=== PATIENT | female | born 1955 | race Caucasian/White ===

== ENCOUNTER 2017-08-04 21:13 | Emergency (ER) | payer OTHER ==
[2017-08-04] MEDS ORDERED: Sodium Chloride 0.9% 500 ML IV ONE (21:45)
[2017-08-04] MEDS ORDERED: Aluminum Hydroxide/Magnesium Hydroxide Susp (30 mL) PO STA (21:45)
--- NOTE | 2017-08-04 21:46 | C.PDOC ---
History Of Present Illness 61 year old female presents to the ED with daughter for evaluation of epigastric abdominal pain which has been intermittent for several days. Patient describes her symptoms as a cramping sensation and states she experienced similar episodes only 1-2 times prior to today. She denies any exacerbating or relieving factors and states the onset of her pain is unpredictable. Patient denies fever, chills, vomiting, diarrhea, constipation, dysuria, hematuria, urinary frequency. Patient also denies previous abdominal surgeries, gallstones , or liver problems. History obtained from daughter due to language barrier. Chief Complaint (Nursing): Abdominal Pain History Per: Patient, Family (daughter ) History/Exam Limitations: language barrier Onset/Duration Of Symptoms: Intermittent Episodes Current Symptoms Are (Timing): Still Present Location Of Pain/Discomfort: Epigastric Radiation Of Pain To:: None Quality Of Discomfort: Cramping, "Pain" Associated Symptoms: denies: Fever, Chills, Vomiting, Urinary Symptoms Last Bowel Movement: Today (few hours prior to arrival) Additional History Per: Patient, Family Abnormal Vaginal Bleeding: No Past Medical History Reviewed: Historical Data, Nursing Documentation, Vital Signs Vital Signs: Last Vital Signs Temp 97.1 F L 08/05/17 00:44 Pulse 88 08/05/17 00:44 Resp 20 08/05/17 00:44 BP 149/70 08/05/17 00:44 Pulse Ox 97 08/05/17 00:48 - Medical History PMH: Anemia, HTN, Hyperlipidemia Denies: Chronic Kidney Disease Surgical History: No Surg Hx - [facility] Procedures CLOSED ENDOSCOPIC BIOPSY OF LARGE INTESTINE (05/08/15) Family History: States: Unknown Family Hx - Social History Hx Alcohol Use: No Hx Substance Use: No - Immunization History Hx Tetanus Toxoid Vaccination: No Hx Influenza Vaccination: Yes Hx Pneumococcal Vaccination: No Review Of Systems Constitutional: Negative for: Fever, Chills Gastrointestinal: Positive for: Abdominal Pain (epigastric ). Negative for: Vomiting, Diarrhea, Constipation Genitourinary: Negative for: Dysuria, Frequency, Hematuria Physical Exam - Physical Exam Appears: Non-toxic, No Acute Distress Skin: Warm, Dry, Other (pink ) Head: Atraumatic, Normacephalic Eye(s): bilateral: Normal Inspection Oral Mucosa: Moist Neck: Supple Chest: Symmetrical, No Deformity, No Tenderness Cardiovascular: Rhythm Regular, No Murmur, Other (non-accelerated ) Respiratory: Normal Breath Sounds, No Rales, No Rhonchi, No Wheezing Gastrointestinal/Abdominal: Bowel Sounds (active), Soft, Tenderness (to epigastric and left upper quadrant regions on palpation ), No Guarding, No Rebound, Other (protuberant. negative Peguero's sign ) Extremity: Normal ROM, Capillary Refill (less than 2 seconds ) Neurological/Psych: Oriented x3, Normal Speech, Normal Cognition Gait: Steady ED Course And Treatment - Laboratory Results Result Diagrams: 08/04/17 22:07 08/04/17 22:07 O2 Sat by Pulse Oximetry: 97 (on RA) Pulse Ox Interpretation: Normal Medical Decision Making Medical Decision Making: Impression: 61 year old female with epigastric and left upper quadrant abdominal pain Differential Diagnoses include but are not limited to: Gastritis vs Peptic Ulcer Disease vs Gallbladder Disease Progress: Bloodwork ordered and reviewed. Maalox PO, Pepcid IVP, Zofran IVP, Lidocaine PO , and IV Fluids administered. Disposition - Disposition Referrals: at [facility] [Outside] Disposition: HOME/ ROUTINE Disposition Time: 00:35 Condition: GOOD Prescriptions: Pantoprazole Sodium [Protonix] 40 mg PO DAILY #14 ect Instructions: Gastritis (ED) Forms: [email or web address] (Urdu) - Clinical Impression Clinical Impression: Gastritis, Gastroesophageal reflux disease - Scribe Statement The provider has reviewed the documentation as recorded by the Scribe (Tiffanie Cancino) Provider Attestation: All medical record entries made by the Scribe were at my direction and personally dictated by me. I have reviewed the chart and agree that the record accurately reflects my personal performance of the history, physical exam, medical decision making, and the department course for this patient. I have also personally directed, reviewed, and agree with the discharge instructions and disposition.
--- NOTE | 2017-08-04 21:47 | C.PDOC ---
Chief Complaint (Nursing): Abdominal Pain Past Medical History Vital Signs: Last Vital Signs Temp 97.5 F L 08/04/17 21:24 Pulse 86 08/04/17 21:24 Resp 18 08/04/17 21:24 BP 150/73 08/04/17 21:24 Pulse Ox 97 08/04/17 21:24 - Medical History PMH: Anemia, HTN, Hyperlipidemia Denies: Chronic Kidney Disease - [facility] Procedures CLOSED ENDOSCOPIC BIOPSY OF LARGE INTESTINE (05/08/15) - Social History Hx Alcohol Use: No Hx Substance Use: No - Immunization History Hx Tetanus Toxoid Vaccination: No Hx Influenza Vaccination: Yes Hx Pneumococcal Vaccination: No ED Course And Treatment O2 Sat by Pulse Oximetry: 97 Disposition - Disposition
[2017-08-04] MEDS ORDERED: Aluminum Hydroxide/Magnesium Hydroxide Susp (30 mL) ONE (22:08)
[2017-08-04 22:11] LABS: BASO # 0.1 K/uL (0.0-0.2); BASO % 1.2 % (0.0-2.0); EOS # 0.3 K/uL (0.0-0.7); EOS % 4.2 % (0.0-4.0); HEMATOCRIT 34.3 % (34.0-47.0); LYMPH # 4.5 K/uL (1.0-4.3); LYMPH % 56.7 % (20.0-40.0); MEAN CELL VOLUME 61.7 fL (81.0-99.0); MEAN CORPUSCULAR HEMOGLOBIN 19.6 pg (27.0-31.0); MEAN CORPUSCULAR HGB CONC 31.8 g/dL (33.0-37.0); MEAN PLATELET VOLUME 8.8 fL (7.2-11.7); MONO # 0.5 K/uL (0.0-0.8); MONO % 6.4 % (0.0-10.0); NRBC % 0.1 % (0.0-2.0); RED CELL DISTRIBUTION WIDTH 17.4 % (11.5-14.5)
[2017-08-04 22:26] LABS: ALB/GLOB RATIO 1.5 (1.0-2.1); ALKALINE PHOSPHATASE 54 U/L (38-126); ALT/SGPT 26 U/L (9-52); AST/SGOT 19 U/L (14-36); BILIRUBIN,TOTAL 0.6 mg/dL (0.2-1.3); BLOOD UREA NITROGEN 26 mg/dL (7-17); CALCIUM 8.8 mg/dl (8.6-10.4); CARBON DIOXIDE 21 mmol/L (22-30); CHLORIDE 101 mmol/L (98-107); GFR AFRICAN-AMERICAN > 60; GLUCOSE,RANDOM 134 mg/dL (65-105); POTASSIUM 4.2 mmol/L (3.6-5.2); SODIUM 134 mmol/L (132-148)
[2017-08-05 00:46] VITALS: BP 149/70; PULSE 88; RESP 20; TEMP 97.1
[2017-08-05 00:48] VITALS: O2SAT 97
== END 2017-08-05 00:46 | disposition home or self-care (01) ==
LOC: C.ER 21:13
DX: K29.70 Gastritis, unspecified, without bleeding (principal); K21.9 Gastro-esophageal reflux disease without esophagitis
CPT/HCPCS: 80053; 83690; 84484; 85025; 96361; 96374; 96375; 99284; J2405; J7040

== ENCOUNTER 2018-01-19 14:55 | Emergency (ER) | payer OTHER ==
[2018-01-19 15:08] VITALS: BMI 35.3
[2018-01-19] MEDS ORDERED: Sodium Chloride 0.9% 1,000 ML IV ONE (16:05)
[2018-01-19] MEDS ORDERED: Iohexol 240 (50 ml) PO STA (16:05)
--- NOTE | 2018-01-19 16:05 | C.PDOC ---
History Of Present Illness 62 Y/O FEMALE PRESENTS TO ED WITH C/O RECUR EPIG/RUQ PAIN SINCE 299. PATIENT HAD SIM TO PRIOR SX EVALUATED ON 07/2017 BUT NO PRIOR IMAGING. PATIENT REPORTS CURRENT PAIN MORE INTENSE THAN LAST EPISODE. NO FEVER. +NAUSEA AND DIARRHEA LAST BM TODAY. PSH NEG. REFERRED BY PMD FOR EVAL EXAM MILD DIST NONTOXIC ABD +RUQ/EPIG TEND MOD SOFT NO R/G REMAINDER NEG MDM NPO SINCE 24 HRS Time Seen by Provider: 01/19/18 15:54 Chief Complaint (Nursing): Abdominal Pain History Per: Patient History/Exam Limitations: no limitations Onset/Duration Of Symptoms: Days Current Symptoms Are (Timing): Still Present Location Of Pain/Discomfort: RUQ, Epigastric Past Medical History Reviewed: Historical Data, Nursing Documentation, Vital Signs Vital Signs: Last Vital Signs Temp 98.6 F 01/19/18 18:06 Pulse 96 H 01/19/18 18:06 Resp 18 01/19/18 18:06 BP 100/59 L 01/19/18 18:06 Pulse Ox 99 01/19/18 18:06 - Medical History PMH: Anemia, HTN, Hyperlipidemia Surgical History: No Surg Hx - [facility] Procedures CLOSED ENDOSCOPIC BIOPSY OF LARGE INTESTINE (05/08/15) Family History: States: No Known Family Hx - Social History Hx Alcohol Use: No Hx Substance Use: No - Immunization History Hx Tetanus Toxoid Vaccination: No Hx Influenza Vaccination: Yes (2017) Hx Pneumococcal Vaccination: No Review Of Systems Constitutional: Negative for: Fever, Chills Gastrointestinal: Positive for: Abdominal Pain. Negative for: Nausea, Vomiting , Diarrhea Musculoskeletal: Negative for: Back Pain Skin: Negative for: Rash Physical Exam - Physical Exam Appears: Non-toxic, Other (In mild distress) Skin: Normal Color, Warm, Dry, No Rash Head: Atraumatic, Normacephalic Oral Mucosa: Moist Neck: Normal ROM, Supple Cardiovascular: Rhythm Regular Respiratory: Normal Breath Sounds, No Rales, No Rhonchi, No Wheezing Gastrointestinal/Abdominal: Soft, Tenderness (RUQ and Epigastric), No Guarding, No Rebound Back: No CVA Tenderness Extremity: Normal ROM, Capillary Refill (<2 seconds) Neurological/Psych: Oriented x3, Normal Speech, Normal Cognition ED Course And Treatment - Laboratory Results Result Diagrams: 01/19/18 16:23 01/19/18 16:23 ECG: Interpreted By Me, Viewed By Me ECG Rhythm: Sinus Tachycardia Rate From EC (BPM) O2 Sat by Pulse Oximetry: 97 (RA) Pulse Ox Interpretation: Normal Progress - Re-Evaluation Re-evaluation Note: 01/19/18 18:[address], US REPORT REVIEWED. 01/19/18 18:[address] JOSUE 01/19/18 18:08 D/W DR JOSUE AWARE OF ER FINDINGS - Data Reviewed Data Reviewed: Lab, Diagnostic imaging, EKG, Old records Medical Decision Making Medical Decision Making: PATIENT NPO SINCE 24 HOURS Disposition Counseled Patient/Family Regarding: Studies Performed, Diagnosis, Need For Followup, Rx Given - Disposition Referrals: Ellen Josue MD [Staff Provider] - Disposition: HOME/ ROUTINE Disposition Time: 18:01 Condition: IMPROVED Prescriptions: Dicyclomine [Bentyl] 20 mg PO TID PRN #12 tab PRN Reason: Pain Ondansetron [Zofran Odt] 4 mg PO TID PRN #9 odt PRN Reason: Nausea/Vomiting Instructions: Acute Abdomen (Belly Pain), Adult (DC), Viral Gastroenteritis, Adult (DC) Forms: Accompanied To ED By:, Silver [employer] (Danish) - Clinical Impression Clinical Impression: Abdominal pain, Nausea, Diarrhea - Scribe Statement The provider has reviewed the documentation as recorded by the Scribmellissa Yu All medical record entries made by the Scribe were at my direction and personally dictated by me. I have reviewed the chart and agree that the record accurately reflects my personal performance of the history, physical exam, medical decision making, and the department course for this patient. I have also personally directed, reviewed, and agree with the discharge instructions and disposition.
[2018-01-19 16:26] LABS: BASO % 0.2 % (0.0-2.0); EOS % 0.2 % (0.0-4.0); HEMOGLOBIN 12.9 g/dL (11.0-16.0); LYMPH # 0.9 K/uL (1.0-4.3); LYMPH % 10.8 % (20.0-40.0); MEAN CELL VOLUME 60.4 fL (81.0-99.0); MEAN CORPUSCULAR HEMOGLOBIN 19.7 pg (27.0-31.0); MEAN CORPUSCULAR HGB CONC 32.6 g/dL (33.0-37.0); MEAN PLATELET VOLUME 9.1 fL (7.2-11.7); MONO # 0.3 K/uL (0.0-0.8); MONO % 3.9 % (0.0-10.0); NEUT # 7.1 K/uL (1.8-7.0); NEUT % 84.9 % (50.0-75.0); NRBC % 0.1 % (0.0-2.0); RBC 6.54 Mil/uL (3.80-5.20); RED CELL DISTRIBUTION WIDTH 17.5 % (11.5-14.5); WHITE BLOOD COUNT 8.4 K/uL (4.8-10.8)
[2018-01-19] MEDS ORDERED: Morphine 4 MG/ML VIAL ONE (16:26)
[2018-01-19] MEDS ORDERED: Iohexol 240 (50 ml) ONE (16:26)
[2018-01-19] MEDS ORDERED: Sodium Chloride 0.9% 1,000 ML ONE (16:27)
[2018-01-19 16:32] LABS: SQUAMOUS EPITHIAL 3 /hpf (0-5); URINE BILIRUBIN NEGATIVE (NEGATIVE); URINE BLOOD NEGATIVE (NEGATIVE); URINE CLARITY Hazy (Clear); URINE COLOR Yellow (YELLOW); URINE GLUCOSE (UA) NORMAL (Normal); URINE LEUKOCYTE ESTERASE 1+ Leu/uL (Negative); URINE PROTEIN NEGATIVE (NEGATIVE); URINE UROBILINOGEN NORMAL mg/dL (0.2-1.0)
[2018-01-19 16:40] LABS: ALB/GLOB RATIO 1.2 (1.0-2.1); ALBUMIN 4.6 g/dL (3.5-5.0); ALT/SGPT 20 U/L (9-52); AST/SGOT 20 U/L (14-36); BLOOD UREA NITROGEN 26 mg/dL (7-17); CALCIUM 9.3 mg/dl (8.6-10.4); GFR AFRICAN-AMERICAN > 60; GFR NON-AFRICAN AMERICAN > 60; LIPASE 91 U/L (23-300)
[2018-01-19] MEDS ORDERED: Iohexol 300 100 ML IJ ONE (16:53)
--- NOTE | 2018-01-19 17:30 | US ---
HISTORY: Abdominal pain COMPARISON: None. TECHNIQUE: Sonographic evaluation of the right upper quadrant of the abdomen. FINDINGS: LIVER: Measures 16.3 cm in length. Hepatopedal blood flow. Fatty infiltration manifest ultrasonographically as increased echogenicity of the liver parenchyma. No mass. No intrahepatic bile duct dilatation. GALLBLADDER: Unremarkable. No gallstones. COMMON BILE DUCT: Measures 3.2 mm. No stones. No dilatation. PANCREAS: Unremarkable as visualized. No mass. No ductal dilatation. RIGHT KIDNEY: Measures 5.3 x 9.8 cm in length. Normal echogenicity. No calculus, mass, or hydronephrosis. AORTA: No aneurysmal dilatation. IVC: Unremarkable. OTHER FINDINGS: None . IMPRESSION: No acute findings related to/accounting for the clinical presentation. Hepatic steatosis without focal abnormality.
--- NOTE | 2018-01-19 17:51 | CT ---
PROCEDURE: CT Abdomen and Pelvis with contrast HISTORY: abd pain COMPARISON: None. TECHNIQUE: Contrast dose: 100 mL Omnipaque 300 Radiation dose: Total exam DLP = 826.05 mGy-cm. This CT exam was performed using one or more of the following dose reduction techniques: Automated exposure control, adjustment of the mA and/or kV according to patient size, and/or use of iterative reconstruction technique. FINDINGS: LOWER THORAX: Unremarkable. LIVER: Unremarkable. No gross lesion or ductal dilatation. GALLBLADDER AND BILE DUCTS: Unremarkable. PANCREAS: Unremarkable. No gross lesion or ductal dilatation. SPLEEN: Unremarkable. ADRENALS: Unremarkable. No mass. KIDNEYS AND URETERS: Unremarkable. No hydronephrosis. No solid mass. VASCULATURE: Unremarkable. No aortic aneurysm. BOWEL: Unremarkable. No obstruction. No gross mural thickening. APPENDIX: Normal appendix. PERITONEUM: Unremarkable. No free fluid. No free air. LYMPH NODES: No retroperitoneal or pelvic lymphadenopathy. There are numerous shotty subcentimeter lymph nodes within the small bowel mesenteric, consistent with nonspecific mesenteric adenitis. BLADDER: Poorly distended. No gross abnormality. REPRODUCTIVE: Normal uterus. BONES: No acute fracture. OTHER FINDINGS: None. IMPRESSION: Findings consistent with nonspecific mesenteric adenitis. No other significant abnormality.
[2018-01-19 18:06] VITALS: BP 100/59; PULSE 96; RESP 18; TEMP 98.6
[2018-01-19 18:10] VITALS: O2SAT 97
--- NOTE | 2018-01-20 12:59 | CARD ---
APPROVED REPORT EKG Measurement Heart [id number] <Conclusion> Sinus tachycardia Indeterminate axis Borderline ECG
== END 2018-01-19 18:20 | disposition home or self-care (01) ==
LOC: C.ER 14:55
DX: R10.11 Right upper quadrant pain (principal); R10.13 Epigastric pain; R11.0 Nausea; R19.7 Diarrhea, unspecified
CPT/HCPCS: 74177; 76705; 80053; 81001; 83690; 85025; 93005; 96374; 96375; 99284; J2270; J2405; J7040; Q9966; Q9967